=== PATIENT | female | born 1960 | race American Indian/Alaskan Native ===

== ENCOUNTER 2018-10-14 09:09 | Inpatient (IN) | payer MEDICAID ==
[2018-10-14 09:09] VITALS: BMI 19.5
--- NOTE | 2018-10-14 09:45 | C.PDOC ---
History Of Present Illness 58 year old female with PMHx of COPD and bipolar disorder presents for detox. Pt notes cocaine and heroin drug use. Last drug use was last night. Pt offers no other medical complaints at this time. Denies SI, HI, auditory hallucinations, and any other associated symptoms. Time Seen by Provider: 10/14/18 09:23 Chief Complaint (Nursing): Substance Abuse History Per: Patient History/Exam Limitations: no limitations Onset/Duration Of Symptoms: Days Suicide/Self Injury Attempted (Context): None Associated Symptoms: denies: Suicidal Thoughts, Suicidal Plan Recent travel outside of the [place]: No Past Medical History Reviewed: Historical Data, Nursing Documentation, Vital Signs Vital Signs: Last Vital Signs Temp 98 F 10/14/18 09:21 Pulse 85 10/14/18 09:21 Resp 16 10/14/18 09:21 BP 119/71 10/14/18 09:21 Pulse Ox 95 10/14/18 09:21 - Medical History PMH: Anxiety, Asthma, Bipolar Disorder, Bronchitis, COPD, Depression, Emphysema, Fractures (RIGHT WRIST AFTER FALL IN 2013) Denies: Colonic Polyps, Diabetes, Hepatitis, HIV, HTN, Paranoia, Post Traumatic Stress Disorder, Schizophrenia, Seizures, Sexually Transmitted Disease, TIA Surgical History: Denies: Endoscopy - [facility] Procedures DETOXIFICATION SERVICES FOR SUBSTANCE ABUSE TREATMENT (06/11/15) DRUG DETOXIFICATION (10/01/14) GROUP BUILDING WRECKER FOR SUBSTANCE ABUSE TREATMENT, PSYCHOEDUCATION (06/11/15) Family History: States: Unknown Family Hx - Social History Hx Tobacco Use: Yes Hx Alcohol Use: Yes Hx Substance Use: No - Immunization History Hx Tetanus Toxoid Vaccination: No Hx Influenza Vaccination: No Hx Pneumococcal Vaccination: No Review Of Systems Psych: Negative for: Suicidal ideation, Other ((-) homicidal ideations. (-) auditory hallucinations. ) Physical Exam - Physical Exam Appears: Non-toxic, No Acute Distress, Other (thin female. ) Skin: Warm, Dry Head: Atraumatic, Normacephalic Eye(s): bilateral: Normal Inspection Oral Mucosa: Moist Neck: Normal ROM, Supple Chest: Symmetrical, No Deformity Cardiovascular: Rhythm Regular, No Murmur Respiratory: Normal Breath Sounds, No Rales, No Rhonchi Gastrointestinal/Abdominal: Normal Exam, Soft, No Tenderness Extremity: Normal ROM (x4), No Deformity, No Swelling Neurological/Psych: Oriented x3, Normal Speech, Normal Cognition ED Course And Treatment - Laboratory Results Result Diagrams: 10/14/18 10:06 10/14/18 10:06 O2 Sat by Pulse Oximetry: 95 (RA) Pulse Ox Interpretation: Normal Medical Decision Making Medical Decision Making: Initial plan: -Blood sent. -Urinalysis crisis eval 1109 pt is medically cleared for detox; crisis team notified. recommend outpatient f/u of abnl lft. Disposition Discussed With Dr.: Alec Lane Doctor Will See Patient In The: Hospital - Disposition Disposition: HOSPITALIZED Disposition Time: 12:15 Condition: GOOD Forms: [employer] (Polish) - Clinical Impression Clinical Impression: Opioid use disorder, severe, dependence - PA / ADVERTISING DIRECTOR / Resident Statement MD/DO has reviewed & agrees with the documentation as recorded. - Scribe Statement The provider has reviewed the documentation as recorded by the Scribe (Natalie Posada) All medical record entries made by the Scribe were at my direction and personally dictated by me. I have reviewed the chart and agree that the record accurately reflects my personal performance of the history, physical exam, medical decision making, and the department course for this patient. I have also personally directed, reviewed, and agree with the discharge instructions and disposition.
[2018-10-14 10:21] LABS: BASO % 0.4 % (0.0-2.0); EOS # 0.1 K/uL (0.0-0.7); EOS % 1.7 % (0.0-4.0); HEMOGLOBIN 12.9 g/dL (11.0-16.0); LYMPH % 28.8 % (20.0-40.0); MEAN CELL VOLUME 90.3 fL (81.0-99.0); MEAN CORPUSCULAR HGB CONC 34.3 g/dL (33.0-37.0); MEAN PLATELET VOLUME 8.1 fL (7.2-11.7); MONO % 14.1 % (0.0-10.0); NEUT # 3.7 K/uL (1.8-7.0); NRBC % 0.1 % (0.0-2.0); RBC 4.17 Mil/uL (3.80-5.20); RED CELL DISTRIBUTION WIDTH 12.6 % (11.5-14.5); WHITE BLOOD COUNT 6.8 K/uL (4.8-10.8)
[2018-10-14 10:33] LABS: SQUAMOUS EPITHIAL < 1 /hpf (0-5); URINE BILIRUBIN NEGATIVE (NEGATIVE); URINE BLOOD NEGATIVE (NEGATIVE); URINE CLARITY Clear (Clear); URINE COLOR Yellow (YELLOW); URINE GLUCOSE (UA) NORMAL (Normal); URINE HYALINE CAST 0-2 /lpf (0-2); URINE LEUKOCYTE ESTERASE NEG Leu/uL (Negative); URINE PROTEIN NEGATIVE (NEGATIVE)
[2018-10-14 10:40] LABS: ALB/GLOB RATIO 1.5 (1.0-2.1); ALBUMIN 4.3 g/dL (3.5-5.0); ALT/SGPT 21 U/L (9-52); AST/SGOT 48 U/L (14-36); BLOOD UREA NITROGEN 15 mg/dL (7-17); CALCIUM 9.4 mg/dl (8.6-10.4); GFR NON-AFRICAN AMERICAN > 60
[2018-10-14 10:55] LABS: BARBITURATES, UR NEGATIVE (NEGATIVE); BENZODIAZEPINES, UR NEGATIVE (NEGATIVE); PHENCYCLIDINE, UR NEGATIVE (NEGATIVE)
[2018-10-14 11:04] LABS: OPIATES, UR POSITIVE (NEGATIVE)
[2018-10-14] MEDS ORDERED: Divalproex 500 mg DR Tab PO ONE (18:01)
--- NOTE | 2018-10-15 06:43 | PCM.BM ---
<Tona Dias - Last Filed: 10/15/18 06:43> Treatment Plan Problems - Problems identified on initial assessmt Opiates Abuse Date Initiated: 10/14/18 Time Initiated: 23:00 Assessment reference: NA Status: Active Treatment assets and liabiliti Patient Assests: negotiates basic needs Patient Liabilities: substance abuse (Opiates) - Milieu Protocol Maintain good personal hygiene: daily Encourage regular showers, daily Remind patient to perform daily oral care, every shift Assist patient to perform ADL's Conduct patient checks and document Observation sheet: Q15 minutes Maintain personal safety: every shift Educate patient to report safety concerns to staff, every shift Monitor environment for contraband/sharps Medication safety: Monitor for expected outcome, potential side effects: every shift, Assess barriers to learning: every shift, Assess readiness for medication education: every shift <Eli Peng - Last Filed: 10/17/18 13:20> Family Contact Family involvement: Famliy/SO not involved - Goals for Treatment Patient goals for treatment: Complete detox and resume IOP at [facility] Discharge/Continuing Care - Education Needs Education Needs: Patient Medication, Patient Diagnosis/Disease Process, Patient Coping Skills, Patient Anger Management skills, Patient Placement options, Patient Community resources - Discharge Discharge Criteria: No longer exhibiting s/s of withdrawal, Reduction of target symptoms Discharge to:: Home, With Family - Treatment Team Participation Patient/Family/SO Statement: 10/17/18 13:19 "My needs to move out though because he's using. I wanna go back to [facility]..." Discussed with Family/SO: No Was Patient/Family/SO present at Treatment Team Meeting: Yes
[2018-10-15] MEDS: Divalproex 500 mg DR Tab PO SCH ×2 (09:06→17:07)
--- NOTE | 2018-10-15 23:00 | PCM.PSYCH ---
Initial Psychiatric Evaluation - Initial Psychiatric Evaluation Type of Admission: Voluntary Legal Status: Capacity Chief Complaint (in patient's own words): "I want detox for heroin" History of Present Illness and Precipitating Events: Patient is a 58 year old -[place] female, and lives with her . She is currently unemployed. She presented to the ED for heroin detox. Patient reports snorting heroin and smoking cocaine daily. She reports snorting 10 bags of heroin daily, last use was yesterday when she snorted 2 bags. She also reports smoking 2 bottles of cocaine, last use was yesterday. She reports using these substances for more than 12 years. She also reports drinking alcohol and smoking marijuana once in a while. She reports a history of detox at [facility], and [facility]] in the past. She reports a history of Bipolar Disorder and PTSD after her mother, sister and niece were killed. She reports being treated with Depakote, she smoke 1/2 pack of cigarettes daily. She denies SI/HI, delusions, paranoid. Psych Hx: Opiates Use Disorder, Cocaine Use Disorder, Bipolar Disorder, and PTSD PMHx: COPD, Emphysema, and Bronchitis FamHx: Brothers and Sisters - Substance Use Disorder Current Medications: Active Medications Generic Name Dose Route Start Last Admin Trade Name Freq PRN Reason Stop Dose Admin Divalproex Sodium 500 mg 10/15/18 10:00 10/15/18 17:[address] PO Not Given BID GEORGINA Methadone HCl 20 mg 10/15/18 15:45 10/15/18 16:00 Methadone PO 10/19/18 15:44 20 mg Q24H GEORGINA Administration Taper Trazodone HCl 50 mg 10/14/18 17:58 10/15/18 21:34 Desyrel PO 50 mg HS PRN Administration Sleep Past Psychiatric History - Past Psychiatric History Pertinent Medical Hx (Current Medical&Sleep Prob, Allergies): Allergies Allergy/AdvReac Type Severity Reaction Status Date / Time Penicillins Allergy Intermediate SWELLING Verified 10/14/18 09:23 Divalproex [Depakote DR] 500 mg PO BID 09/30/14 Albuterol HFA [Ventolin HFA 90 mcg/actuation (8 g)] 2 puff INH BID PRN 07/28/16 Fluticasone/Salmeterol 250/50 [Advair Diskus 250/50] 1 puff INH BID 07/28/16 Omeprazole 40 mg PO DAILY 07/28/16 Tiotropium [place] Inhaler [Spiriva Inhalation Handihaler Device] 2 puff INH BID PRN 07/28/16 Review of Systems - Psychiatric Psychiatric: As Per HPI, Abnormal Sleep Pattern, Anxiety, Behavioral Changes, Depression Mental Status Examination - Personal Presentation Personal Presentation: Looks older than stated age - Affect Affect: Constricted, Depressed - Motor Activity Motor Activity: Calm - Reliability in Providing Information Reliability in Providing Information: Fair - Speech Speech: Relevant, Coherent - Mood Mood: Depressed, Anxious - Formal Thought Process Formal Thought Process: No Impairment - Obsessions/Compulsions Obsessions: None Compulsions: None - Cognitive Functions Orientation: Person, Place, Situation, Time Sensorium: Alert Attention/Concentration: Attentive Estimate of Intelligence: Average - Risk Risk: Withdrawal - Strength & Assets Inventory Strength & Assets Inventory: Family support DSM 5 DX - DSM 5 DSM 5 Diagnosis: Opiates Use Disorder Cocaine Use Disorder Bipolar Disorder PTSD - Recommended/Plan of Treatment Treatment Recommendations and Plan of Treatment: Taper with Methadone Gabapentin for augmentation if needed As needed medications: - Trazodone All risks, benefits and alternatives of the meds discussed, and the pt agreed and understood. Attend groups and activities Supportive therapy and psychoeducation IN for abstinence CBT for relapse prevention Encourage MAT Refer to rehab or IOP, and self-help groups Teach healthy lifestyle methods, i.e. diet, exercise, meditation Smoking cessation with IN Nicotine patch if needed 35 min
[2018-10-16] MEDS: Divalproex 500 mg DR Tab PO SCH ×2 (09:51→17:10)
[2018-10-16] MEDS ORDERED: Aluminum Hydroxide/Magnesium Hydroxide Susp (30 mL) PO PRN (12:58)
[2018-10-16] MEDS: Pantoprazole 40 mg EC Tab PO SCH (13:35)
[2018-10-16] MEDS: Multiple Vitamins Tab PO SCH (13:35)
[2018-10-16] MEDS: Fluticasone Nasal 50 mcg/Spray NAS SCH (13:45)
--- NOTE | 2018-10-16 23:24 | PCM.PYCHPN ---
Psychiatric Progress Note - Psychiatric Progress Note Medication Change: Yes Medical Record Reviewed: Yes Mental Status Examination - Cognitive Function Orientation: Person, Place, Situation, Time - Mood Mood: Depressed, Anxious - Affect Affect: Constricted, Depressed - Formal Thought Process Formal Thought Process: No Impairment
[2018-10-17] MEDS: Divalproex 500 mg DR Tab PO SCH ×2 (09:34→18:57)
[2018-10-17] MEDS: Multiple Vitamins Tab PO SCH (09:34)
[2018-10-17] MEDS: Pantoprazole 40 mg EC Tab PO SCH (09:34)
[2018-10-17] MEDS: Fluticasone Nasal 50 mcg/Spray NAS SCH (09:35)
[2018-10-18 07:48] VITALS: BP 127/81; PULSE 62; RESP 18; TEMP 97.4; O2SAT 97
--- NOTE | 2018-10-18 08:42 | PCM.PYCHDC ---
Mental Status Examination - Mental Status Examination Orientation: Person, Place, Situation, Time Memory: Intact Mood: Anxious Affect: Constricted Speech: Appropriate Attention: WNL Concentration: WNL Association: WNL Fund of Knowledge: WNL Formal Thought Process: No Impairment Suicidal Ideation: No Current Homicidal Ideation?: No Discharge Summary - Discharge Note Reason for Hospitalization: Opioid detox Consultations:: List each consultation separately and include: 1. Reason for request. 2. Findings. 3. Follow-up Summary of Hospital Course include:: 1. Description of specific treatment plan utilized for patients during their course of treatmen. 2. Summarize the time- course for resolution of acute symptoms and/or regressed behaviors. 3. Describe issues identified and worked on during hospitalization. 4. Describe medication utilized. 5. Describe medical problems identified and treated. 6. Reassessment of suicide risk Summary of Hospital Course: Hospital course: The pt was admitted and started on treatment with psychotherapy, support, psychoeducation and medications. [place] and CBT used. The pt attended groups and activities, as well as milieu therapy. All the risks and benefits of medications are discussed and the patient understood and agreed. The pt improved with the treatments provided. After care discussed with the patient. She will attend [facility] - Final Diagnosis (DSM 5) Condition upon Discharge: GOOD DSM 5: Opiates Use Disorder Cocaine Use Disorder Bipolar Disorder PTSD Disposition: HOME/ ROUTINE Follow-up Treatment Plan: Continue below medications after discharge. Follow after care plan as discussed. Use relapse prevention skills Return to ER or call 911 if suicidal, homicidal or symptoms relapse. Stay away from stress, alcohol and drugs. See primary doctor regularly and get labs. Prescriptions/Medication Reconciliation: Albuterol HFA [Ventolin HFA 90 mcg/actuation (8 g)] 2 puff INH BID PRN #1 inhaler PRN Reason: Wheezing busPIRone [Buspar] 10 mg PO BID #60 tab Divalproex [Depakote DR] 500 mg PO BID #60 tcp Escitalopram [Lexapro] 10 mg PO DAILY #30 tab Loratadine [Claritin] 10 mg PO DAILY #30 tab Multivitamins [Hexavitamin] 1 tab PO DAILY #30 tab Pantoprazole [Protonix EC Tab] 40 mg PO DAILY #30 ect traZODone [Desyrel] 50 mg PO HS PRN #30 tab PRN Reason: Sleep
[2018-10-18] MEDS: Fluticasone Nasal 50 mcg/Spray NAS SCH (09:28)
[2018-10-18] MEDS: Multiple Vitamins Tab PO SCH (09:30)
[2018-10-18] MEDS: Divalproex 500 mg DR Tab PO SCH (09:31)
[2018-10-18] MEDS: Pantoprazole 40 mg EC Tab PO SCH (09:31)
--- NOTE | 2018-10-18 14:25 | PCM.PYCHPN ---
Psychiatric Progress Note - Psychiatric Progress Note Medication Change: Yes Medical Record Reviewed: Yes Mental Status Examination - Cognitive Function Orientation: Person - Mood Mood: Depressed, Anxious - Affect Affect: Constricted, Depressed - Formal Thought Process Formal Thought Process: No Impairment
== END 2018-10-18 10:17 | disposition home or self-care (01) | DRG 744 ==
LOC: C.ER 09:09 → C.7D 12:14 → OBSVTOIN 10-15 16:00
PROVIDERS: ADMIT Psychiatry & Neurology Psychiatry; ATTEND Psychiatry & Neurology Psychiatry
PROC: HZ52ZZZ Individual Psychotherapy for Substance Abuse Treatment, Cognitive-Behavioral (ICD-10-PCS; principal; 2018-10-15)
PROC: HZ2ZZZZ Detoxification Services for Substance Abuse Treatment (ICD-10-PCS; 2018-10-15)
PROC: HZ59ZZZ Individual Psychotherapy for Substance Abuse Treatment, Supportive (ICD-10-PCS; 2018-10-15)
PROC: HZ56ZZZ Individual Psychotherapy for Substance Abuse Treatment, Psychoeducation (ICD-10-PCS; 2018-10-15)
PROC: HZ42ZZZ Group Counseling for Substance Abuse Treatment, Cognitive-Behavioral (ICD-10-PCS; 2018-10-15)
PROC: HZ46ZZZ Group Counseling for Substance Abuse Treatment, Psychoeducation (ICD-10-PCS; 2018-10-15)
PROC: GZHZZZZ Group Psychotherapy (ICD-10-PCS; 2018-10-15)
PROC: GZ58ZZZ Individual Psychotherapy, Cognitive-Behavioral (ICD-10-PCS; 2018-10-15)
PROC: GZ56ZZZ Individual Psychotherapy, Supportive (ICD-10-PCS; 2018-10-15)
DX: F11.20 Opioid dependence, uncomplicated (principal); J43.9 Emphysema, unspecified; F31.9 Bipolar disorder, unspecified; F43.10 Post-traumatic stress disorder, unspecified; F14.10 Cocaine abuse, uncomplicated; F17.210 Nicotine dependence, cigarettes, uncomplicated